=== PATIENT | male | born 1990 | race Two or more races ===

== ENCOUNTER 2025-03-12 23:04 | Emergency (ER) | payer MEDICAID, SELFPAY ==
[2025-03-12 23:10] VITALS: BMI 19.1
[2025-03-13 00:21] VITALS: BP 123/73; PULSE 67; RESP 16; TEMP 37.2; O2SAT 97
[2025-03-13] MEDS: ACYCLOVIR 800 MG TABLET PO (00:50)
--- NOTE | 2025-03-13 02:37 | EDNOTE_ITS ---
ED Skin Abcess FB-RME/HPI General Chief complaint: Skin/Abscess/Foreign Body Stated complaint: PAINFUL REDDENED RAISED AREA LOW R BACK Time Seen by Provider: 03/13/25 00:38 Arrival date/time: 03/12/25 23:04 34M with no significant PMH presents to ED with 1 day of L lower back painful rash. Patient denies bite sensation and patient hasn't been hiking or using new topical products. Limitations: no limitations Related Data Previous Rx's ?Medication ?Instructions ?Recorded docusate sodium 100 mg capsule 100 mg PO BID PRN const ipation #10 11/05/22 caps psyllium 1 tbsp PO QDAY #300 grams benzonatate 100 mg capsule 100 mg PO TID PRN cough #15 caps 01/03/23 acetaminophen 325 mg tablet (Pain 650 mg (2 x 325 mg) PO QID PRN 10/11/23 Relief (acetaminophen)) fever or pain #20 tabs ibuprofen 600 mg tablet 600 mg PO Q8H PRN fever or p ain 10/11/23 #30 tabs ondansetron 4 mg disintegrating 4 mg PO Q8H PRN nausea and 01/29/24 tablet vomiting #20 tabs acyclovir 800 mg tablet 800 mg PO Q4H 7 days #42 tab s 03/13/25 Allergies Allergy/AdvReac Type Severity Reaction Status Date / Time No Known Allergies Allergy Verified 03/12/25 23:15 Review of Systems Review of Systems Systems Reviewed: All systems reviewed, normal except as documented Constitutional Constitutional: Reports system reviewed and no additional complaints, except as documented, Denies fever(s) and Denies headache(s) ENT Ears, Nose, Mouth, and Throat: Denies disequilibrium and Denies headache(s) Cardiovascular Cardiovascular: Reports system reviewed and no additional complaints, except as documented, Denies chest pain and Denies dyspnea Respiratory Respiratory: Reports system reviewed and no additional complaints, except as documented, Denies cough and Denies dyspnea Gastrointestinal Gastrointestinal: Reports system reviewed and no additional complaints, except as documented, Denies abdominal pain, Denies nausea and Denies vomiting Integumentary/Breasts Skin/Breast: Reports as per HPI, Reports rash and Reports skin pain Neurologic Neurologic: Reports system reviewed and no additional complaints, except as documented, Denies confusion, Denies disequilibrium and Denies headache(s) Psychiatric Psychiatric: Denies confusion Past Medical History Past Medical History CARDIAC: Negative Cardiac Disorders or Congestive Heart Failure RESPIRATORY: Negative Chronic Obstructive Pulmonary Disease (COPD) or Asthma GENITOURINARY: Negative Renal Disease ENDOCRINE: Negative Diabetes Mellitus Type 1 or Diabetes Mellitus Type 2 HEMATOLOGIC: Negative Sickle Cell Disease Social History SMOKING STATUS: Never smoker ED Exam General Limitations: Present no limitations General appearance: Present alert and in no apparent distress Head Head exam: Present atraumatic Eye Eye exam: Present normal appearance, PERRL and EOMI ENT ENT exam: Present normal exam, normal oropharynx and mucous membranes moist Neck Neck exam: Present normal inspection, full ROM and trachea midline Chest Chest inspection: Present normal inspection and symmetric chest wall rise Respiratory Respiratory exam: Present normal lung sounds bilaterally Cardiovascular Cardiovascular exam: Present regular rate, normal rhythm and normal heart sounds Abdominal Exam Abdominal exam: Present soft and normal bowel sounds Extremities Exam Extremities exam: Present normal inspection and full ROM Back Exam Back exam: Present normal inspection and full ROM Neurological Exam Neurological exam: Present alert, oriented X3 and CN II-XII intact Psychiatric Psychiatric exam: Present normal affect and normal mood Skin Skin exam: Present warm, dry, intact, normal color and rash Course Quality Measures none Orders Category Date Time Status Acyclovir [Zovirax] Med 03/13/25 00:38 Discontinued 800 mg PO X1 ONE Vital Signs Vital signs: Vital Signs Temperature 99.0 F 03/13/25 00:21 Pulse Rate 67 03/13/25 00:21 Respiratory Rate 16 03/13/25 00:21 Blood Pressure 123/73 03/13/25 00:21 Pulse Oximetry (%) 97 03/13/25 00:21 Oxygen Delivery Method Room Air 03/13/25 00:21 O2 at 97% on RA and WNLs Skin / Abscess / Foreign Body MDM Narrative MDM Narrative:: 34M with no significant PMH presents to ED with 1 day of L lower back painful rash. Patient denies bite sensation and patient hasn't been hiking or using new topical products. Patient denies itching and recent sexual encounter. Physical exam with distribution systems superintendent reveals vesicular rash on L lower back area. Only one patch. Patietn is afebrile, calm, and alert. Likely early shingles vs contact dermatitis, though less likely the latter given no known contact. Patient data External records reviewed:: [facility] previous records Clinical information provided by:: patient Social determinants that could affect healthcare access:: none Patient has the following chronic illnesses:: none How is presenting disease/condition affected by chronic disease/condition?: no chronic disease Evaluation data The following diagnostics were reviewed and interpreted by me:: other (specify) (none) Lab and/or radiology exams considered but not ordered:: not ordered Interpretation Summary: n/a Medications / Prescriptions Medications or Prescriptions considered but not ordered:: ordered Medication administrations:: Medication Administration History Discontinued Medications Acyclovir (Acyclovir 800 Mg Tablet) 800 mg PO X1 ONE Stop: 03/13/25 00:39 Last Admin: 03/13/25 00:50 Dose: 800 mg Documented By: MD above Consultations Consultation(s) initiated? (list below): No Diagnosis Skin/Abscess Differential Diagnosis: abscess of skin or subcutaneous tissue, viral exanthem, dermatophytosis, urticaria, herpes zoster, allergic reaction to drug, cellulitis, eczema, insect bites, impetigo and contact dermatitis Most likely diagnosis given after review of the tests above:: herpes zoster Admission Indicated Admission indicated?: not indicated Admission Request Was there a request for admission?: No Disposition Plan Disposition Plan: Discharge Discharge Attestation Discharge Attestation: The patient and all family members were given an opportunity to ask questions and understood the discharge instructions. Discharge instructions specifically effects, indications for sooner follow up or return to the emergency department, and the expected course of current diagnosis. Patient condition: Stable Discharge Plan Plan Patient Disposition: HOME (Self Care) Discharge Disposition comment: Stable Prescriptions/Referrals Prescriptions/Med Rec: New acyclovir 800 mg tablet 800 mg PO Q4H 7 Days Qty: 42 0RF Rx Instructions: while awake; give 5 doses in 24 hours No Action docusate sodium 100 mg capsule 100 mg PO BID PRN (Reason: constipation) Qty: 10 0RF benzonatate 100 mg capsule 100 mg PO TID PRN (Reason: cough) Qty: 15 0RF ondansetron 4 mg tablet,disintegrating 4 mg PO Q8H PRN (Reason: nausea and vomiting) Qty: 20 0RF psyllium Powder 1 tbsp PO QDAY Qty: 300 0RF Rx Instructions: mix into at least 8 oz of water or juice before administering acetaminophen [Pain Relief (acetaminophen)] 325 mg tablet 650 mg PO QID PRN (Reason: fever or pain) Qty: 20 0RF ibuprofen 600 mg tablet 600 mg PO Q8H PRN (Reason: fever or pain) Qty: 30 0RF Problem List Clinical Impression: Herpes zoster Patient/Caregiver Discharge Instructions Education Materials: ED Shingles (Herpes Zoster) Additional Instructions: Please follow-up with PCP within 24-48 hours and return immediately if symptoms worsen. Print Language: Citizen Of [place] Stand Alone Forms: Patient Portal Info Letter PA/SILVER SPRAY WORKER Supervising Physician PA/SILVER SPRAY WORKER Supervising Physician: Dr. Dhaliwal
== END 2025-03-13 00:53 | disposition home or self-care (01) ==
LOC: SERX 03-13 00:52
PROVIDERS: Emergency Provider Emergency Medicine; PCP Family Medicine
DX: B02.9 Zoster without complications (principal)
CPT/HCPCS: 99282; A9270

== ENCOUNTER 2025-06-06 23:20 | Emergency (ER) | payer MEDICAID, SELFPAY ==
[2025-06-06 23:22] VITALS: BMI 25.0
[2025-06-06 23:56] VITALS: BP 122/75; PULSE 82; RESP 18; TEMP 37.2; O2SAT 98
--- NOTE | 2025-06-06 23:57 | PD.EDMALE ---
ED Male Genitalurinary RME/HPI General Chief complaint: General Adult/Misc Complain Stated complaint: PAINFUL URINATION AND WHITE DISCHARGE Time Seen by Provider: 06/06/25 23:24 Source: patient, RN notes reviewed and old records reviewed Arrival date/time: 06/06/25 23:20 Mode of arrival: ambulatory Limitations: no limitations RME / HPI RME / HPI Narrative: 35yom presents to ED for dysuria and penile white discharge that initiated today. No known STD exposures. Patient denies fever, nausea/vomiting, abdominal/flank pain, hematuria or rash/lesion. No medications or treatments since onset. Related Data Previous Rx's ?Medication ?Instructions ?Recorded docusate sodium 100 mg capsule 100 mg PO BID PRN constipation #10 11/05/22 caps psyllium 1 tbsp PO QDAY #300 grams 11/07/22 benzonatate 100 mg capsule 100 mg PO TID PRN cough #15 caps 01/03/23 acetaminophen 325 mg tablet (Pain 650 mg (2 x 325 mg) PO QID PRN 10/11/23 Relief (acetaminophen)) fever or pain #20 tabs ibuprofen 600 mg tablet 600 mg PO Q8H PRN fever or pain 10/11/23 #30 tabs ondansetron 4 mg disintegrating 4 mg PO Q8H PRN nausea and 01/29/24 tablet vomiting #20 tabs doxycycline monohydrate 100 mg 100 mg PO BID 7 days #14 tabs 06/07/25 tablet Allergies Allergy/AdvReac Type Severity Reaction Status Date / Time No Known Allergies Allergy Verified 06/06/25 23:28 Review of Systems Review of Systems Systems Reviewed: All systems reviewed, normal except as documented Constitutional Constitutional: Denies chills and Denies fever(s) Gastrointestinal Gastrointestinal: Denies abdominal pain, Denies nausea and Denies vomiting Genitourinary Genitourinary: Reports dysuria, Denies flank pain, Denies hematuria, Reports penile discharge and Denies testicular pain Past Medical History Surgical History OTHER SURGICAL HX: denies pshx Social History SMOKING STATUS: Never smoker SUBSTANCE USE: does not use ALCOHOL: Never Past Medical History Comments PMH COMMENT: denies pmhx ED Exam General Limitations: Present no limitations General appearance: Present alert and in no apparent distress Head Head exam: Present atraumatic and normocephalic Eye Eye exam: Present normal appearance, PERRL and EOMI ENT ENT exam: Present normal exam and mucous membranes moist Neck Neck exam: Present normal inspection and full ROM Chest Chest inspection: Present normal inspection and symmetric chest wall rise Respiratory Respiratory exam: Present normal lung sounds bilaterally; Absent respiratory distress Cardiovascular Cardiovascular exam: Present regular rate and normal rhythm Abdominal Exam Abdominal exam: Present soft; Absent distention, tenderness, guarding or rebound Extremities Exam Extremities exam: Present normal inspection and full ROM Back Exam Back exam: Absent CVA tenderness (R) or CVA tenderness (L) Neurological Exam Neurological exam: Present alert and oriented X3 Psychiatric Psychiatric exam: Present normal affect and normal mood Skin Skin exam: Present warm, dry, intact and normal color Course Quality Measures none Orders Category Date Time Status Chlamydia/GC/TV - PCR Stat Lab 06/06/25 Completed UA [Urinalysis] Stat Lab 06/07/25 00:41 Completed cefTRIAXone [Rocephin] 500 mg Med 06/06/25 23:56 Discontinued Lidocaine 1% 20 ml [Xylocaine 1% 20 ML] 1 ml IM X1 Vital Signs Vital signs: Vital Signs Temperature 98.9 F 06/06/25 23:56 Pulse Rate 82 06/06/25 23:56 Respiratory Rate 18 06/06/25 23:56 Blood Pressure 122/75 06/06/25 23:56 Pulse Oximetry (%) 98 06/06/25 23:56 Oxygen Delivery Method Room Air 06/06/25 23:56 Urogenital - Male MDM Narrative MDM Narrative:: 35yom presents to ED for dysuria and penile white discharge that initiated today. No known STD exposures. Patient denies fever, nausea/vomiting, abdominal/flank pain, hematuria or rash/lesion. No medications or treatments since onset. Patient treated for STDs, GC culture sent and pending. Instructed to abstain from sex until symptoms resolved, medication completed. Notify partner of any positive result. Stable for dc, RTED precautions given. Patient data External records reviewed:: [facility] previous records (03/13/2025 ED visit for herpes zoster) Clinical information provided by:: patient Social determinants that could affect healthcare access:: other (specify) (Poor access to healthcare, acculturation difficulty) Patient has the following chronic illnesses:: None How is presenting disease/condition affected by chronic disease/condition?: no chronic disease Evaluation data The following diagnostics were reviewed and interpreted by me:: lab results Lab and/or radiology exams considered but not ordered:: none Interpretation Summary: UA +leuks Medications / Prescriptions Medications or Prescriptions considered but not ordered:: none Medication administrations:: Medication Administration History Discontinued Medications Ceftriaxone Sodium 500 mg/ (Lidocaine HCl 1 ml) 0 mg IM X1 ONE Stop: 06/06/25 23:57 Last Admin: 06/07/25 00:27 Dose: 500 mg Documented By: CORBY Above medication administered in ED Consultations Consultation(s) initiated? (list below): No Diagnosis Urogenital Male Differential Diagnosis: urinary tract infection, urethritis and epididymitis Most likely diagnosis given after review of the tests above:: STD screening, penile discharge Admission Indicated Admission indicated?: not indicated Admission Request Was there a request for admission?: No Disposition Plan Disposition Plan: Discharge Discharge Attestation Discharge Attestation: The patient and all family members were given an opportunity to ask questions and understood the discharge instructions. Discharge instructions specifically effects, indications for sooner follow up or return to the emergency department, and the expected course of current diagnosis. Patient condition: Stable Discharge Plan Plan Patient Disposition: HOME (Self Care) Patient condition on transfer: Stable Prescriptions/Referrals Prescriptions/Med Rec: New doxycycline monohydrate 100 mg tablet 100 mg PO BID 7 Days Qty: 14 0RF No Action docusate sodium 100 mg capsule 100 mg PO BID PRN (Reason: constipation) Qty: 10 0RF benzonatate 100 mg capsule 100 mg PO TID PRN (Reason: cough) Qty: 15 0RF ondansetron 4 mg tablet,disintegrating 4 mg PO Q8H PRN (Reason: nausea and vomiting) Qty: 20 0RF psyllium Powder 1 tbsp PO QDAY Qty: 300 0RF Rx Instructions: mix into at least 8 oz of water or juice before administering acetaminophen [Pain Relief (acetaminophen)] 325 mg tablet 650 mg PO QID PRN (Reason: fever or pain) Qty: 20 0RF ibuprofen 600 mg tablet 600 mg PO Q8H PRN (Reason: fever or pain) Qty: 30 0RF Referrals: No Primary/Family,Physician [Primary Care Provider] - In 1 week Problem List Clinical Impression: UTI (urinary tract infection), Screen for STD (sexually transmitted disease) Patient/Caregiver Discharge Instructions Education Materials: ED Testing for Suspected STI Print Language: Burmese Stand Alone Forms: Physicians Endoscopy Info., Patient Portal Info Letter PA/BLUEPRINTING AND PHOTOCOPY SUPERVISOR Supervising Physician PA/BLUEPRINTING AND PHOTOCOPY SUPERVISOR Supervising Physician: Libby
[2025-06-07] MEDS: cefTRIAXone 500 MG, LIDOCAINE 1% 20 ML 1 ML IM (00:27)
[2025-06-07 00:49] LABS: Collection Type, Urine Clean Catch; Squamous Epithelial Cell,Urine 0 /hpf (0-5)
[2025-06-07 01:04] LABS: Bilirubin,Urine Negative (Negative); Blood,Urine Negative (Negative); Clarity,Urine Clear (Clear/Hazy); Color,Urine Lt-Yellow (Lt Yel-Yel); Glucose, Urine Negative (Negative); Ketones,Urine Negative (Negative); Leukocyte Esterase,Urine Positive (Negative); Nitrite,Urine Negative (Negative); PH,Urine 6.0 (5.0-7.0); Protein,Urine Negative (Neg - Trace); RBC,Urine 7 /hpf (0-3); Specific Gravity,Urine 1.010 (1.001-1.035); Urobilinogen,Urine Negative mg/dL (0.0-1.0); WBC,Urine 132 /hpf (0-5)
--- NOTE | 2025-06-07 01:13 | PC.NURSE ---
called lab to receive GC/chlamydia as only ua received
[2025-06-07 07:19] LABS: Chlamydia trachomatis PCR Negative (Not Detect); Neisseria Gonorrhoeae DNA PCR Positive (Not Detect); Trichomonas Negative (Negative)
== END 2025-06-07 01:36 | disposition home or self-care (01) ==
PROVIDERS: Physician Assistant; Emergency Provider Emergency Medicine
DX: N39.0 Urinary tract infection, site not specified (principal); Z60.3 Acculturation difficulty; Z75.8 Other problems related to medical facilities and other health care
CPT/HCPCS: 81001; 87491; 87591; 87661; 96372; 99283; J0696; J3490